=== PATIENT | female | born 1965 | race Caucasian/White ===

== ENCOUNTER 2020-04-16 17:05 | Observation (INO) ==
[2020-04-16] MEDS ORDERED: Albuterol 2.5mg/3 ml (0.083%) NEB.SOLN INH PRN (20:08)
[2020-04-16] MEDS ORDERED: NS 0.9% 1000 ml BAG 1,000 ML IV SCH (20:15)
[2020-04-16] MEDS: Heparin 5000 UNITS/ML 1 mL VIAL SUBCUT SCH (23:23)
[2020-04-17 06:20] LABS: ABS Eosinophils 0.2 10^3/ul (0-0.6); ABS Lymphocytes 2.4 10^3/ul (1.0-4.8); ABS Monocytes 0.5 10^3/ul (0-0.8); ABS Neutrophils 3.9 10^3/ul (1.5-7.7); Eosinophil % 2.7 %; Hematocrit 36 % (35-47); Hemoglobin 11.8 g/dL (12.0-16.0); Lymphocyte % 34.4 %; Mean Corpuscular HGB Conc 33 g/dL (31-36); Mean Corpuscular Hemoglobin 26 pg (27-31); Mean Corpuscular Volume 79 fL (80-97); Mean Platelet Volume 7.9 fL (7.4-10.4); Platelet Count 276 10^3/uL (150-450); Red Blood Count 4.53 10^6 /uL (3.70-4.87); Red Cell Distribution Width 17 % (10-15); White Blood Count 7.1 10^3/uL (3.5-10.8)
[2020-04-17 06:26] LABS: INR 0.99 (0.82-1.09)
[2020-04-17 06:39] LABS: BUN/Creatinine Ratio 30.5 (8-20); Calcium 8.8 mg/dL (8.6-10.3); EGFR African American 128.5 (>60); EGFR Non-African American 106.2 (>60); HDL Cholesterol 54.4 mg/dL
[2020-04-17] MEDS: Heparin 5000 UNITS/ML 1 mL VIAL SUBCUT SCH ×2 (06:41→14:18)
[2020-04-17] MEDS ORDERED: Multivitamins/Minerals TAB PO SCH (08:30)
[2020-04-17] MEDS ORDERED: Mometasone 220 MCG MDI INH SCH (09:00)
[2020-04-17 09:40] VITALS: BP 127/74
[2020-04-17] MEDS ORDERED: Perflutren Lipid Microsphere 3 ML VIAL ONE (13:59)
[2020-04-18] MEDS ORDERED: Pneumococcal Vac 23-Polyvalent IM ONE (09:00)
== END 2020-04-17 16:25 | disposition home or self-care (01) | DRG 755 ==
LOC: ED 17:05 → INTOOBSV 22:02 → MEDTELE 22:02
PROVIDERS: ADMIT Hospitalist; ATTEND Pediatrics